=== PATIENT | female | born 1990 ===

== ENCOUNTER 2018-06-12 19:01 | Emergency (ER) | payer SELFPAY ==
[2018-06-12] MEDS ORDERED: Ketorolac 60 MG/2 ML SDV IM ONE (19:42)
--- NOTE | 2018-06-12 19:42 | EDM.PDOC ---
ED HPI GENERAL MEDICAL PROBLEM - General Chief Complaint: Upper Extremity Injury/Pain Stated Complaint: NECK AND SHOULDER PAINS Time Seen by Provider: 06/12/18 19:36 Source of Information: Reports: Patient History Limitations: Reports: No Limitations - History of Present Illness INITIAL COMMENTS - FREE TEXT/NARRATIVE: HISTORY AND PHYSICAL: History of present illness: Patient is a 28-year-old female here with complaints of left shoulder pain. She states that she injured her shoulder 10 years ago and has had multiple surgeries on it since then. She states that for the past month her shoulder has been bothering her more. She came into the ED today because she recently moved from [place]. She was not seeing a provider for this recent pain prior to coming to [place]. She denies any distal pain, numbness, tingling. She denies any new recent injury or trauma to the shoulder. She states the pain is from her neck down into her shoulder and worse with certain movements. She states she is taking Aleve without relief of symptoms. Review of systems: As per history of present illness and below otherwise all systems reviewed and negative. Past medical history: As per history of present illness and as reviewed below otherwise noncontributory. Surgical history: As per history of present illness and as reviewed below otherwise noncontributory. Social history: No reported history of drug or alcohol abuse. Family history: As per history of present illness and as reviewed below otherwise noncontributory. Physical exam: General: Patient sitting comfortably in no acute distress and nontoxic appearing HEENT: Atraumatic, normocephalic, pupils reactive, negative for conjunctival pallor or scleral icterus, mucous membranes moist, throat clear, neck supple, nontender, trachea midline. No meningeal signs. Lungs: Clear to auscultation, breath sounds equal bilaterally, chest nontender. Heart: S1S2, regular, negative for clicks, rubs, or overt murmur. Abdomen: Soft, nondistended, nontender. Negative for masses or hepatosplenomegaly. Negative for costovertebral tenderness. No rigidity, rebound , guarding. Pelvis: Stable nontender. Genitourinary: Deferred. Rectal: Deferred. Spine: There is no vertebral tenderness or step-offs to palpation. Extremities: Pain to palpation of the supraspinatus and AC joint. ROM limited secondary to pain. Atraumatic, negative for cords or calf pain. Neurovascular unremarkable. Neuro: Awake, alert, oriented. Cranial nerves II through XII unremarkable. Cerebellum unremarkable. Motor and sensory unremarkable throughout. Exam nonfocal. Notes: Diagnostics: Declined x-ray Therapeutics: Toradol 60mg IM Prescriptions: Diclofenac Impression: Left shoulder pain Plan: 1. Take medication as instructed 2. Follow up with primary care provider or ortho clinic, please call the number provided to schedule an appointment 3. Return to ED as needed as discussed Definitive disposition and diagnosis as appropriate pending reevaluation and review of above. Left Shoulder Pain Score (Numeric/FACES): 7 - Related Data Allergies Allergy/AdvReac Type Severity Reaction Status Date / Time amoxicillin [From Augmentin] Allergy Vomiting Verified 06/12/18 19:18 clavulanic acid Allergy Vomiting Verified 06/12/18 19:18 [From Augmentin] Penicillins Allergy Hives Verified 06/12/18 19:18 Home Meds: Home Meds Diclofenac Sodium [Voltaren] 75 mg PO BIDMEALS #30 tab.cr 06/12/18 [Rx] Gabapentin [Neurontin] 600 mg PO TID 06/12/18 [History] Past Medical History - Past Health History Medical/Surgical History: Denies Medical/Surgical History Neurological History: Reports: Other (See Below) Other Neuro History: fibromyalgia - Past Surgical History HEENT Surgical History: Reports: Adenoidectomy, Tonsillectomy Female Surgical History: Reports: Section Musculoskeletal Surgical History: Reports: Shoulder Surgery Social & Family History - Family History Family Medical History: Noncontributory - Tobacco Use Smoking Status *Q: Never Smoker - Recreational Drug Use Recreational Drug Use: No Review of Systems - Review of Systems Review Of Systems: ROS reveals no pertinent complaints other than HPI. ED EXAM, GENERAL - Physical Exam Exam: See Below (see dictation) Course - Vital Signs Last Recorded V/S: Last Vital Signs Temp 97.2 F 06/12/18 19:15 Pulse 100 06/12/18 19:15 Resp 18 06/12/18 19:15 BP 123/80 06/12/18 19:15 Pulse Ox 97 06/12/18 19:15 Departure - Departure Time of Disposition: 20:09 Disposition: Home, Self-Care 01 Condition: Good Clinical Impression: Left shoulder pain - Discharge Information Prescriptions: Diclofenac Sodium [Voltaren] 75 mg PO BIDMEALS #30 tab.cr Referrals: PCP,None [Primary Care Provider] - Forms: ED Department Discharge Additional Instructions: The following information is given to patients seen in the emergency department who are being discharged to home. This information is to outline your options for follow-up care. We provide all patients seen in our emergency department with a follow-up referral. The need for follow-up, as well as the timing and circumstances, are variable depending upon the specifics of your emergency department visit. If you don't have a primary care physician on staff, we will provide you with a referral. We always advise you to contact your personal physician following an emergency department visit to inform them of the circumstance of the visit and for follow-up with them and/or the need for any referrals to a consulting specialist. The emergency department will also refer you to a specialist when appropriate. This referral assures that you have the opportunity for follow-up care with a specialist. All of these measure are taken in an effort to provide you with optimal care, which includes your follow-up. Under all circumstances we always encourage you to contact your private physician who remains a resource for coordinating your care. When calling for follow-up care, please make the office aware that this follow-up is from your recent emergency room visit. If for any reason you are refused follow-up, please contact the [facility] Emergency Department at and asked to speak to the emergency department charge nurse. [facility] Primary Care [address] [place] [id number] [facility] Specialty Care - Orthopedic Clinic Professional Building [address], [address] [place] [address] 1. Take medication as instructed 2. Follow up with primary care provider or ortho clinic, please call the number provided to schedule an appointment 3. Return to ED as needed as discussed
== END 2018-06-12 20:20 | disposition home or self-care (01) ==
LOC: MW.ED 19:01
DX: M25.512 Pain in left shoulder (principal); Z88.1 Allergy status to other antibiotic agents; Z88.0 Allergy status to penicillin
CPT/HCPCS: 99283